=== PATIENT | female | born 1970 | race Caucasian/White ===

== ENCOUNTER 2019-05-16 05:59 | Inpatient (IN) | payer BC ==
[2019-05-15 15:30] VITALS: BMI 25.9
[~2019-05-16] VITALS: Ht 172.7 cm; Wt 77.1 kg
[2019-05-16] VITALS (26 sets, daily range): BP systolic 95–113; BP diastolic 59–75; PULSE 62–106; RESP 15–31; Ht 172.7 cm; Wt 77.1 kg
[~2019-05-16 05:59] MED LIST: BEN50 PO; CEFAZOLIN 2 GM/50 ML (PMX) 50 ML IVPB ONE
[2019-05-16] MEDS: LACTATED RINGER'S 1,000 ML (ENTER RATE) IV SCH ×2 (07:12→17:34)
[2019-05-16] MEDS ORDERED: SEVOFLURANE 15 MIN ONE (07:40)
[2019-05-16] MEDS ORDERED: CEFAZOLIN 1 GM INJ ONE (07:43)
[2019-05-16] MEDS ORDERED: ROCURONIUM 50 MG INJ ONE (07:43)
[2019-05-16] MEDS ORDERED: MIDAZOLAM 1 MG/ML 2 ML INJ ONE (07:43)
[2019-05-16] MEDS ORDERED: ROPIVACAINE 0.2% 20 ML VIAL ONE (07:43)
[2019-05-16] MEDS ORDERED: PROPOFOL 20 ML ONE (07:43)
[2019-05-16] MEDS ORDERED: morphine SULFATE/PF (10 MG/10 ML) INJ ONE (07:43)
[2019-05-16] MEDS ORDERED: LABETALOL HCL 20MG INJ ONE (08:45)
[2019-05-16] MEDS ORDERED: HETASTARCH 6% NACL 500 ML ONE (09:08)
[2019-05-16] MEDS ORDERED: PHENYLephrine (100 MCG/ML) 10ML SYG ONE ×2 (09:09→09:30)
[2019-05-16] MEDS ORDERED: DEXAMETHASONE 4 MG/ML 5 ML INJ ONE (09:11)
[2019-05-16] MEDS ORDERED: ONDANSETRON 4 MG INJ ONE (09:11)
[2019-05-16] MEDS ORDERED: KETOROLAC 30 MG INJ ONE (09:11)
[2019-05-16] MEDS ORDERED: METOCLOPRAMIDE 10 MG INJ ONE (09:11)
[2019-05-16] MEDS ORDERED: EPHEDrine 25 MG/5 ML SYG ONE (09:17)
[2019-05-16] MEDS ORDERED: ALBUMIN HUMAN 5% 250 ML IV PRN (09:30)
[2019-05-16] MEDS ORDERED: hydrALAzine 20 MG INJ IV PRN (09:30)
[2019-05-16] MEDS ORDERED: EPHEDrine 25 MG/5 ML SYG IV PRN (09:30)
[2019-05-16] MEDS ORDERED: NALBUPHINE HCL (10 MG/1 ML) INJ IV PRN (09:30)
[2019-05-16] MEDS ORDERED: DIPHENHYDRAMINE 50 MG INJ IV PRN ×2 (09:30)
[2019-05-16] MEDS ORDERED: LABETALOL HCL 20MG INJ IV PRN (09:30)
[2019-05-16] MEDS ORDERED: OXYCODONE/ACETAMINOPHEN (5/325) TAB PO PRN (09:30)
[2019-05-16] MEDS ORDERED: METOCLOPRAMIDE 10 MG INJ IV PRN (09:30)
[2019-05-16] MEDS ORDERED: MEPERIDINE 25 MG INJ IV PRN (09:30)
[2019-05-16] MEDS ORDERED: HYDROmorphONE 0.5 MG/0.5 ML SYG IV PRN (09:30)
[2019-05-16] MEDS ORDERED: ONDANSETRON 4 MG INJ IV PRN (09:30)
[2019-05-16] MEDS ORDERED: ACETAMINOPHEN 500 MG TAB PO PRN (09:30)
[2019-05-16] MEDS ORDERED: FENTAnyl 50 MCG/ML VIAL IV PRN ×2 (09:30)
[2019-05-16] MEDS ORDERED: HYDROmorphONE 1 MG/5 ML IV SYRINGE IV PRN ×2 (09:30)
[2019-05-16] MEDS ORDERED: HYDROCODONE/APAP (5/325) TAB PO PRN (09:30)
[2019-05-16] MEDS ORDERED: morphine 2 MG INJ IV PRN ×2 (09:30)
[2019-05-16] MEDS ORDERED: NALOXONE (0.4 MG/ML) INJ IV PRN (09:30)
[2019-05-16] MEDS ORDERED: SUGAMMADEX SODIUM 200 MG/2 ML VIAL IV ONE (10:32)
[2019-05-16] MEDS: IBUPROFEN 600 MG TAB PO SCH ×2 (11:00→20:25)
[2019-05-16] MEDS ORDERED: ACETAMINOPHEN 325 MG TAB PO PRN (11:00)
[2019-05-16] MEDS: ONDANSETRON 4 MG INJ IV PRN ×2 (13:16→19:38)
[2019-05-16] MEDS: HYDROmorphONE 0.5 MG/0.5 ML SYG IV PRN ×2 (14:45→21:59)
[2019-05-16] MEDS: CEFAZOLIN 2 GM/50 ML (PMX) 50 ML IVPB SCH ×2 (14:52→21:44)
[2019-05-16] MEDS: OXYCODONE/ACETAMINOPHEN (5/325) TAB PO PRN (19:38)
[2019-05-16] MEDS: KETOROLAC 30 MG INJ IV PRN (23:08)
[2019-05-17 02:16] VITALS: BP 90/50; PULSE 101; RESP 17
[2019-05-17] MEDS: IBUPROFEN 600 MG TAB PO SCH ×3 (03:01→18:02)
[2019-05-17] MEDS: CEFAZOLIN 2 GM/50 ML (PMX) 50 ML IVPB SCH (06:22)
[2019-05-17] MEDS: OXYCODONE/ACETAMINOPHEN (5/325) TAB PO PRN ×5 (06:23→23:47)
[2019-05-17 07:47] VITALS: BP 107/78; PULSE 76; RESP 18
[2019-05-17] MEDS: KETOROLAC 30 MG INJ IV PRN ×2 (09:23→21:45)
[2019-05-17 14:00] VITALS: BP 90/53; PULSE 99; RESP 18
[2019-05-17 19:52] VITALS: BP 106/67; PULSE 96; RESP 20
[2019-05-18] MEDS: IBUPROFEN 600 MG TAB PO SCH ×3 (03:28→18:58)
[2019-05-18 08:08] VITALS: BP 117/78; PULSE 90; RESP 18
[2019-05-18] MEDS: HYDROmorphONE 0.5 MG/0.5 ML SYG IV PRN ×2 (09:10→20:42)
[2019-05-18] MEDS: OXYCODONE/ACETAMINOPHEN (5/325) TAB PO PRN ×3 (10:43→18:56)
[2019-05-18 14:01] VITALS: BP 114/73; PULSE 78; RESP 18
[2019-05-18] MEDS: KETOROLAC 30 MG INJ IV PRN ×2 (16:36→23:32)
[2019-05-18 20:11] VITALS: BP 136/76; PULSE 80; RESP 20
[2019-05-19] MEDS: OXYCODONE/ACETAMINOPHEN (5/325) TAB PO PRN ×2 (00:22→08:14)
[2019-05-19] MEDS: IBUPROFEN 600 MG TAB PO SCH ×2 (02:36→12:07)
[2019-05-19 02:48] VITALS: BP 132/72; PULSE 81; RESP 17
[2019-05-19 07:28] VITALS: BP 103/63; PULSE 82; RESP 18
[2019-05-19] MEDS: HYDROmorphONE 0.5 MG/0.5 ML SYG IV PRN (09:54)
== END 2019-05-19 13:08 | disposition home or self-care (01) | DRG 743 ==
LOC: REC 05:59 → EDSTATUS 07:30 → MS1 17:29
PROVIDERS: ADMIT Obstetrics & Gynecology; ATTEND Obstetrics & Gynecology
PROC: 0UT70ZZ Resection of Bilateral Fallopian Tubes, Open Approach (ICD-10-PCS; 2019-05-16)
PROC: 0UT90ZZ Resection of Uterus, Open Approach (ICD-10-PCS; principal; 2019-05-16 07:30)
DX: D25.9 Leiomyoma of uterus, unspecified (principal); N80.0 Endometriosis of uterus; N93.9 Abnormal uterine and vaginal bleeding, unspecified
CPT/HCPCS: 85025; 85610; 85730; 86850; 86900; 86901; 86920; 87086; 88305; J0690; J1100; J1170; J1200; J1885; J2250; J2274; J2370; J2405; J2765; J2795; J3010; J7120